=== PATIENT | female | born 1975 | race Native Hawaiian/Other Pacific Islander ===

== ENCOUNTER 2017-11-24 14:18 | Outpatient (CLI) | payer OTHER | END 2017-11-24 14:39 | disposition home or self-care (01) | LOC: AMB 14:18 | DX: S00.81XA Abrasion of other part of head, initial encounter (principal); V49.9XXA Car occupant (driver) (passenger) injured in unspecified traffic accident, initial encounter; Y93.89 Activity, other specified; Y92.89 Other specified places as the place of occurrence of the external cause ==

== ENCOUNTER 2020-10-10 11:09 | Outpatient (CLI) | payer BC, OTHER ==
[2020-10-10 11:54] LABS: PLATELET COUNT 425 K/uL (152-353)
[2020-10-10 12:15] LABS: POTASSIUM 3.6 mmol/L (3.6-5.2)
== END 2020-10-10 22:06 | disposition home or self-care (01) ==
LOC: LAB 11:09
PROVIDERS: ATTEND Internal Medicine
DX: U07.1 COVID-19 (principal)
CPT/HCPCS: 36415; 80053; 82728; 83880; 85027; 85379; 86140

== ENCOUNTER 2021-09-08 14:03 | Outpatient (CLI) | payer BC | END 2021-09-08 19:51 | disposition home or self-care (01) | LOC: US 14:03 | PROVIDERS: ATTEND Physician Assistant | DX: E04.9 Nontoxic goiter, unspecified (principal) ==

== ENCOUNTER 2022-10-08 15:58 | Outpatient (CLI) | payer BC | END 2022-10-08 20:57 | disposition home or self-care (01) | LOC: US 15:58 | PROVIDERS: ATTEND Physician Assistant | DX: E04.9 Nontoxic goiter, unspecified (principal) ==